=== PATIENT | male | born 1960 | race Caucasian/White ===

== ENCOUNTER → 2024-03-21 00:21 | Outpatient (CLI) | payer MEDICARE, SELFPAY ==
--- NOTE | 2024-03-21 | ETT_ITS ---
APPROVED REPORT Exam: Exercise Treadmill Patient Location: Out-Patient Room/Bed: Stress Nurse: Es Post RN and Eduarda Gaston RN Ordering Provider:JONATHAN MARTIN, Contact Number: [phone] BMI: 40.34 Baseline Rhythm: Sinus Rhythm. Indications: Other Chest Pain. Medical History Medical History: COPD; Depression; Hyperlipidemia; Hypertension; Prediabetes; Chronic Pain; Former Sm oker; Obesity. Cardiac Medications: Albuterol Sulfate; Oxycodone; Lisinopril; Tadalafil; Nicotine Transdermal; Nalox one; Cyclobenzaprine; Omeprazole. Allergies: None. Cardiac Risk Factors: Hyperlipidemia; Hypertension; Prediabetes; COPD; Former Smoker; Obesity. Previous Cardiac Procedures: None. Pretest Chest Pain Characteristics: None. Exercise History: Sedentary. Physical Disabilities: None. Lung Sounds: Diminished in bilateral posterior bases; clear bilaterally throughout otherwise, anterio r and posterior. Heart Sounds: S1 and S2 auscultated. Stress Test Details Test: Exercise stress testing was performed using a Romeo protocol. Rest Stress HR Resting HR Supine: 81 bpm Max Heart Rate (APMHR): 155 bpm Resting HR Standin bpm Target HR (85% APMHR): 132 bpm Max HR Achieved: 132 bpm % of APMHR: 85 Recovery HR: 103 bpm HR response to stress: Normal HR response to stress. BP Resting BP Supine: 156/90 mmHg Resting BP Standin/82 mmHg Max BP: 186/80 mmHg Recovery BP: 160/70 mmHg BP response to stress: Normal blood pressure response to stress. ECG Resting ECG: Sinus Rhythm. Ectopy: None. Stress ECG: Sinus Tachycardia. ST Change: No significant ST segment changes noted. Arrhythmia: None. Recovery ECG: Sinus Tachycardia. Recovery ST Change: No significant ST segment changes noted. Recovery Arrhythmia: None. Clinical Reason for Termination: Target HR Achieved; Dyspnea; Fatigue. Stress Symptoms: Dyspnea; General Fatigue. Exercise duration: 05 min47 sec Highest Stage Reached: Stage 2: 2.5 mph at 12% grade. Exercise capacity: 7.05 METs Angina Score: None Stearns Treadmill Score: 5.5 Rate Pressure Product: [id number] Stress ECG Conclusion 1. Resting electrocardiogram was normal 2. Patient exercised on the Romeo protocol and completed workload of 7 METS 3. Normal heart rate and blood pressure response to exercise. The patient achieved 85% of predicted heart rate for age 4. There was no electrocardiographic evidence of myocardial ischemia 5. There were no significant dysrhythmias Stearns Treadmill Score is 5.5 which is Low risk. Stress Test Summary STAGE Time (mins) Speed (mph) Grade (%) HR BP SpO2 SYMPTOMS METS Supine 81 156/90 92 Standing 103 139/82 89 1 3 1.7 10 120 160/70 86 Pt. complaining of mild SOB. 4.5 2 6 2.5 12 132 150/80 87 Pt. complaining of moderate SOB. 7 1 min recovery 119 164/60 87 Pt. complaining of moderate SOB. 3 min recovery 113 186/80 92 Pt. complaining of mild SOB. 6 min recovery 103 160/70 93 Pt. denies any SOB. Pt. was conversing pleasantly with nursing staff upon leaving the Stress Lab. Pt. left ambulatory in no apparent distress.
== END ==
PROVIDERS: Visit Provider Physician Assistant Medical
DX: R07.89 Other chest pain (principal)
CPT/HCPCS: 93016; 93018; 93017